=== PATIENT | female | born 1990 | race Caucasian/White ===

== ENCOUNTER → 2017-10-13 | Outpatient (CLI) | payer MEDICAID | LOC: LAB 09:39 | DX: L02.818 Cutaneous abscess of other sites (principal) ==

== ENCOUNTER → 2020-04-03 | Outpatient (CLI) | payer SELFPAY ==
[2020-04-04 09:16] LABS: AFFIRM VAGINITIS PANEL RESULTS AMS
== END ==
LOC: LAB 10:04
PROVIDERS: Nurse Practitioner Family
DX: N76.0 Acute vaginitis (principal)